=== PATIENT | female | born 1935 | race Caucasian/White ===

== ENCOUNTER 2016-05-10 19:11 | Observation (INO) | payer MEDICARE, OTHER ==
[~2016-05-10] VITALS: Ht 157.5 cm; Wt 70.0 kg
[~2016-05-10 19:11] MED LIST: ANST1T PO; FURO40TA4 PO; LOSA50TA37 PO; MULT-1018 PO; NITR0.4T6 SL; ZLP5T PO; [UNRECOGNIZED DRUG - OTHER] PO
[2016-05-10 20:00] VITALS: BP 170/80; PULSE 79; RESP 20; O2SAT 98
--- NOTE | 2016-05-10 20:00 | NUR ---
Pt Admit Pt arrived to Room 2004 approximately 1999 on a gurney via [facility] that transported the pt from [facility] to [facility]. Pt is AOx3 and VILLEDA and is independent while ambulating with a steady gait and no c/o dizziness, lightheadedness, or chest pain while at rest or with activity. Pt has nitro paste on left upper chest and VSS. Pt has left AC SL that is patent when flushed. Pt's full admit is completed including medication reconciliation per information provided by the pt. Pt has home medications with her and they are currently in a bag in the pt's medication drawer that needs to go down to pharmacy.
--- NOTE | 2016-05-10 21:01 | PCM.HPMED ---
Subjective Date of Service May 10, 2016 Primary Provider: Admitting Physician: Frank Osborne MD Primary Care Physician: Clare Pandey MD Attending Physician: Frank Osborne MD Chief Complaint: Chest pain, shortness of breath History of Present Illness: Decision 80 nasal female with past medical history of coronary artery disease, hyperlipidemia, breast cancer, osteoarthritis, hypertension who presented initially to [facility] complaining about chest pain. Her symptoms have been going on for 3 weeks approximately , waxes and wanes. Patient denied fever, chills, cough or extremity swelling , no abdominal pain , no nausea, no vomiting . Work up at [facility] is negative, her chest pain was relieved by nitroglycerin. Patient is transferred to [facility] due to inevitability of stress tests at [facility]. At the time of my examination here is scheduled for a hospital impression was chest pain-free Allergies Coded Allergies: Penicillins (Verified Allergy, Severe, 05/15/15) clindamycin (Verified Allergy, Mild, 05/15/15) etodolac (Verified Allergy, Mild, 05/15/15) Home Medications S has a normal body daily, furosemide 20 mg orally daily, losartan 100 mg orally daily PMH Hypertension, carotid artery disease, GERD, hyperlipidemia, atrial fibrillation , history of DVT, GI bleed, osteoarthritis, breast cancer. Surgical History Hysterectomy, coronary angioplasty Family History Family history is reviewed and is noncontributory to the present illness Social History Hx Alcohol Use: Yes (no drinking since 1980) Hx Substance Use: No Hx Tobacco Use: No Living Arrangement: with Family Exam Vital Signs Vital Sign - Last Date Time Temp Pulse Resp B/P Pulse Ox O2 Delivery O2 Flow Rate FiO2 05/10/16 20:00 36.4 79 20 170/80 98 Room Air Exam General/constitutional: Overweight female sitting in bed comfortably, no acute distress. HEENT: PERRL, sclerae anicteric, normocephalic and atraumatic Mouth: Moist oropharyngeal mucosa, no thrush Neck: No JVD, no carotid bruit, trachea is midline, normal range of motion Chest: No chest wall deformity, no tenderness, normal respiratory effort Heart: S1, S2 irregular rate and rhythm, no murmur, no gallop Lung: Clear bilaterally to auscultation, no crackles, no wheezing Abdomen: Soft, audible bowel sounds are gradual, nontender, nondistended. No palpable mass Extremity: No edema, no cyanosis, no tenderness Neuro : Grossly nonfocal. Awake, alert and oriented 3 Skin: Intact, normal turgor. No rash, no ulcers Lab and Diagnostics Labs Lab tests done at [facility] : WBCs 9.5, hemoglobin 10.0, hematocrit 29.9, patient count 3-10, neutrophils 64 Lipase 123, I mean is 57 TSH 2 BUN 17 creatinine 1.4 sodium 141 potassium 3.2 chloride 102 , calcium 10.2 12-lead ECG EKG reviewed and showed normal sinus rhythm, old inferior wall infarct Assessment & Plan 1. Chest pain rule out ACS Chronic medical problems 1. Coronary artery disease with stenting 2 Hypertension 3. Breast cancer 4. Osteoarthritis 5. GI bleed 6. History of atrial fibrillation ( normal sinus rhythm here) 7. Stage III CKD Observation status. Telemetry monitoring. Cardiac enzyme 2. Nitroglycerin for chest pain. Morphine sulfate for chest pain not relieved by nitroglycerin. Patient is not on aspirin at home. She was told not to take aspirin secondary to GI bleed. Nuclear stress test is being scheduled for tomorrow. Cardiac diet. Home medications reviewed and reconciled. Heparin for DVT prophylaxis. Further management depending on stress test result Full code Pain Evaluation: Adequate Pain Control VTE Prophylaxis: Sub-Q Heparin (Unfractionated) Resuscitation Status: CPR: Attempt Resuscitation Time spent 75 minutes Frank Osborne MD May 10, 2016 21:01
[2016-05-10] MEDS ORDERED: Polyethylene Glycol (PEG) 17 Gm Powder PO PRN (21:35)
[2016-05-10] MEDS ORDERED: Alum-Mag Hydrox-Simeth 30 mL Suspension PO PRN (21:35)
[2016-05-10] MEDS ORDERED: Ondansetron 2 mg/mL 2 mL Inj IVPUSH PRN (21:35)
[2016-05-10] MEDS ORDERED: Potassium Chloride Inj 20 MEQ in Dextrose 5% 250 ML IV ONE (21:40)
[2016-05-10 22:44] VITALS: BP 119/47; PULSE 77; RESP 20; O2SAT 97
[2016-05-11 04:06] LABS: Mean Corpuscular Hemoglobin 31.7 pg (27.0-35.0); Mean Corpuscular Volume 99.3 fL (81-100)
[2016-05-11 04:21] VITALS: BP 147/73; PULSE 78; RESP 20; O2SAT 96
[2016-05-11 04:34] LABS: APPEARANCE,URINE HAZY (CLEAR,HAZY); COLOR,URINE YELLOW (YELLOW); OCCULT BLOOD,URINE NEGATIVE (NEGATIVE); UROBILINOGEN,URINE NORMAL (NORMAL)
[2016-05-11 04:42] LABS: TROPONIN T 0.01 ug/L (0.0-0.011)
[2016-05-11 05:43] VITALS: PULSE 76
[2016-05-11] MEDS ORDERED: Heparin 5,000 Unit/mL Inj SUBQ SCH (08:30)
[2016-05-11 09:15] VITALS: BP 161/85; PULSE 82; RESP 20; O2SAT 99
--- NOTE | 2016-05-11 10:58 | NUR ---
DANIEL explained, signed. Copy of DANIEL and Medicare self administered medication information provided
--- NOTE | 2016-05-11 11:31 | PCM.DIMED ---
Discharge Instructions Date of Service May 11, 2016 Dates of Hospitalization May 10, 2016 at 19:57 Discharge Diagnosis Discharge Diagnosis 1. Chest pain, normal blood tests 2. Coronary artery disease with stenting 3. Hypertension 4. Breast cancer 5. GI bleed, remote 6. PAroxysmal atrial fibrillation ( normal sinus rhythm here) 7. Chronic kidney disease Stage III Diet Heart Healthy Patient Instructions See her new primary care physician as scheduled next week. (She cannot remember the name of her doctor.) Follow-up with PCP in: 1 week Chai Lam MD May 11, 2016 11:31
--- NOTE | 2016-05-11 12:19 | NUR ---
Social Work: Discharge Data & Assessment: SW spoke with SW and Rest Room Attendant and she approve for patient to be transported back to her car at [facility] and the hospital will be billed. SW notified patient nurse. Plan : Patient will discharge to her car at [facility] via [facility]. Sylvia Lama LMSW, ACHardik
--- NOTE | 2016-05-11 13:18 | NUR ---
Discharge Patient left with OPHTHALMIC TECH via wheelchair and all personal belongings in a stable condition. IV DC'd intact, tele removed, all personal belongings with patient. No new medications to discuss, all other continued medications discussed with next due times-- patient verbalized understanding. Follow up with PCP in 1 week discussed -- verbalized understanding. Discussed returning to ED/calling 911 if signs/symptoms of IN occur -- verbalized understanding.
--- NOTE | 2016-05-11 13:36 | PCM.DC.MED ---
Discharge Summary Date of Service May 11, 2016 Dates of Hospitalization Date of Hospital Admission May 10, 2016 at 19:57 Date of Discharge: May 11, 2016 Providers: Admitting Physician: Frank Osborne MD Primary Care Physician: Clare Pandey MD Attending Physician: Frank Osborne MD Diagnosis at Time of Discharge Diagnosis at Time of Discharge 1. Chest pain, normal blood tests 2. Coronary artery disease with stenting 3. Hypertension 4. Breast cancer 5. GI bleed, remote 6. PAroxysmal atrial fibrillation ( normal sinus rhythm here) 7. Chronic kidney disease Stage III Consultations Cardiology Procedures XRay, CTs & MRIs Chest x-ray unremarkable other than a hiatal hernia. ECG 12 Lead EKG reviewed and showed normal sinus rhythm, old inferior wall infarct Cardiac Echo Impression None Invasive Procedures None Brief History Decision 80 nasal female with past medical history of coronary artery disease, hyperlipidemia, breast cancer, osteoarthritis, hypertension who presented initially to [facility] complaining about chest pain. Her symptoms have been going on for 3 weeks approximately , waxes and wanes. Patient denied fever, chills, cough or extremity swelling , no abdominal pain , no nausea, no vomiting . Work up at [facility] is negative, her chest pain was relieved by nitroglycerin. Patient is transferred to [facility] due to inevitability of stress tests at [facility]. At the time of my examination here is scheduled for a hospital impression was chest pain-free Hospital Course 1. Chest pain rule out ACS Chronic medical problems 1. Coronary artery disease with stenting 2 Hypertension 3. Breast cancer 4. Osteoarthritis 5. GI bleed 6. History of atrial fibrillation ( normal sinus rhythm here) 7. Stage III CKD Observation status. Telemetry monitoring. Cardiac enzyme 2. Nitroglycerin for chest pain. Morphine sulfate for chest pain not relieved by nitroglycerin. Patient is not on aspirin at home. She was told not to take aspirin secondary to GI bleed. Nuclear stress test is being scheduled for tomorrow. Cardiac diet. Home medications reviewed and reconciled. Heparin for DVT prophylaxis. Further management depending on stress test result Full code Hospital course. This is a pleasant 80-year-old female who is admitted for very transient chest pain. Negative discharged in fact denied any chest pain or dyspnea. She had troponins which were unremarkable as well as an initial resting ECG which is unremarkable. She was seen by cardiology and declined further stress testing with the mid beer otherwise. The patient does have chronic kidney disease with creatinine 1.27 and chronic anemia. She is currently being treated for breast cancer with hormone blockade over a five- year period of time. She denies any recent rectal bleeding or melena. On the day of discharge she felt at baseline and requested discharge home and notes that her new primary care doctor, whose name she cannot recall, is scheduled to see her next week. Exam Vital Signs (Last) Date Time Temp Pulse Resp B/P Pulse Ox O2 Delivery O2 Flow Rate FiO2 05/11/16 09:15 36.5 82 20 161/85 99 Room Air Exam Alert and oriented 3, no distress. Fluent speech. Lungs are clear, red nephropathic heart is regular without murmur gallop or rub. Abdomen soft nontender Extremities are free of edema. Test 05/10/16 21:55 05/11/16 03:45 05/11/16 04:15 05/11/16 09:55 Hold Turk Top Tube Received (Received) White Blood Count 7.5th/mm3 (3.8-10.1) Red Blood Count 2.78mil/mm3 (3.90-5.20) Hemoglobin 8.8g/dL (12.0-15.6) Mean Corpuscular Volume 99.3fL (81-100) Mean Corpuscular Hemoglobin 31.7pg (27.0-35.0) Mean Corpuscular Hemoglobin Concent 31.9% (32.0-37.0) Red Cell Distribution Width 13.4% (12.3-15.4) Platelet Count 255bil/L (150-400) Sodium Level 139mEq/L (134-144) Potassium Level 4.3mEq/L (3.5-5.2) Chloride Level 104mEq/L (97-108) Carbon Dioxide Level 21mmol/L (18-29) Blood Urea Nitrogen 16mg/dL (8-27) Creatinine 1.27mg/dL (0.57-1.00) Estimat Glomerular Filtration Rate 58mL/min (>59) Glucose Level 95mg/dL (60-99) Calcium Level 9.3mg/dL (8.5-10.1) Total Bilirubin 0.5mg/dL (0.0-1.2) Aspartate Amino Transf (AST/SGOT) 19U/L (0-50) Alanine Aminotransferase (ALT/SGPT) 13U/L (0-32) Alkaline Phosphatase 59U/L (25-165) Troponin T 0.010ug/L (0.0-0.011) Total Protein 6.0g/dL (6.4-8.4) Albumin 3.8g/dL (3.4-5.0) Urine Color Yellow (YELLOW) Urine Appearance Hazy (CLEAR,HAZY) Urine pH 6.0 (5.0-8.0) Urine Specific [place] 1.010 (1.003-1.035) Urine Protein Negativemg/dL (NEG,TRACE) Urine Glucose (UA) Negativemg/dL (NEGATIVE) Urine Ketones Negativemg/dL (NEGATIVE) Urine Occult Blood Negative (NEGATIVE) Urine Nitrite Negative (NEGATIVE) Urine Bilirubin Negative (NEGATIVE) Urine Urobilinogen Normalmg/dL (NORMAL) Urine Leukocyte Esterase Trace (NEGATIVE) Urine RBC 0-2/hpf (0-2) Urine WBC 6-10/hpf (0-5) Urine Epithelial Cells Many/hpf (NONE-MOD) Urine Crystals None seen (NONE SEEN) Urine Bacteria Few/hpf (NONE-FEW) Urine Hyaline Casts 5/20/lpf (NONE) Urine Granular Casts None seen (NONE SEEN) Urine Waxy Casts None seen (NONE SEEN) Urine Red Blood Cell Casts None seen (NONE SEEN) Urine White Blood Cell Casts None seen (NONE SEEN) Urine Mucus Present (None Seen) Urine Trichomonas None seen (NONE SEEN) Urine Yeast None (NONE SEEN) Urinalysis Comment None Urine Culture Reflexed Indicated Hematocrit 31.1% (35.0-46.0) Discharge Medications Discharge Medications ([Ultimate 9]) 2 TAB PO DAILY (Reported) Anastrozole (Arimidex) 1 Mg Tablet 1 MG PO DAILY (Reported) Furosemide (Furosemide) 40 Mg Tablet 40 MG PO DAILY (Reported) Losartan Potassium (Losartan Potassium) 50 Mg Tablet 100 MG PO DAILY (Reported) As needed Multivitamin (Multi Vitamin Daily) 1 Each Tablet 1 EACH PO DAILY PRN PRN DAILY ( Reported) Nitroglycerin SL (Nitroglycerin SL) 0.4 Mg Tab.subl 0.4 MG SL PRN PRN PRN For Chest Pain (Reported) Zolpidem (Ambien) 5 Mg Tablet 5 MG PO HS PRN PRN For Insomnia (Reported) Followup Plan Disposition: Home Discharge Diet: Heart Healthy Patient Instructions See her new primary care physician as scheduled next week. (She cannot remember the name of her doctor.) Follow-up with PCP in: 1 week Time spent 30 minutes Chai Lam MD May 11, 2016 13:36
[2016-06-03] MEDS ORDERED: AMLO5TAB2 PO (12:10)
== END 2016-05-11 12:48 | disposition home or self-care (01) ==
LOC: PCC 19:57 → INTOOBSV 19:57
PROVIDERS: ADMIT Internal Medicine; ATTEND Internal Medicine
DX: R07.9 Chest pain, unspecified (principal); I25.10 Atherosclerotic heart disease of native coronary artery without angina pectoris; I12.9 Hypertensive chronic kidney disease with stage 1 through stage 4 chronic kidney disease, or unspecified chronic kidney disease; N18.3 Chronic kidney disease, stage 3 (moderate); D63.1 Anemia in chronic kidney disease; I48.0 Paroxysmal atrial fibrillation; C50.919 Malignant neoplasm of unspecified site of unspecified female breast; E78.5 Hyperlipidemia, unspecified; M19.90 Unspecified osteoarthritis, unspecified site; Z87.19 Personal history of other diseases of the digestive system; K21.9 Gastro-esophageal reflux disease without esophagitis; Z86.718 Personal history of other venous thrombosis and embolism; Z95.5 Presence of coronary angioplasty implant and graft
CPT/HCPCS: 36415; 80053; 81000; 84132; 84484; 85014; 85027; 87086; 87088; G0378; G0379